=== PATIENT | male | born 1970 | race Caucasian/White ===

== ENCOUNTER 2021-03-03 10:09 | Emergency (ER) | payer BC ==
[2021-03-03] MEDS ORDERED: Sodium Chloride 0.9% 10 ML Syringe FLUSH PRN (10:21)
[2021-03-03] MEDS ORDERED: Ondansetron 4 MG/2 ML SDV IVPUSH ONE (10:22)
[2021-03-03] MEDS ORDERED: HYDROmorphone 1 MG/ML Syringe IVPUSH ONE ×3 (10:23→12:30)
[2021-03-03 11:06] LABS: CHLORIDE,CL 103 mmol/L (98-107); SODIUM,NA 140 mmol/L (136-145)
[2021-03-03 11:08] LABS: ANION GAP 15.7 mmol/L (5-15)
[2021-03-03 11:14] LABS: PTT,PARTIAL THROMBOPLSTIN TIME 26.9 SEC (25.6-32.8)
[2021-03-03] MEDS ORDERED: Iopamidol 612 MG/ML 100 ML Bottle IVPUSH ONE (11:36)
--- NOTE | 2021-03-03 12:42 | CT ---
[id number] CT/CTA Chest . Exam: CTA Chest Clinical Data: CHEST PAIN ELEVATED D-DIMER COMPARISON: NO PREVIOUS SIMILAR EXAM IS AVAILABLE FINDINGS: There is an aberrant right subclavian artery. Pulmonary emboli are seen in the lower lobes bilaterally Pulmonary artery opacification is suboptimal There is a small right effusion Report called at time of dictation An infiltrate is seen at the right lung base IMPRESSION: BILATERAL LOBE PULMONARY EMBOLI Mustapha Barrera MD 03/03/21 [id number] Thank you for allowing us to participate in the care of your patient.
[2021-03-03] MEDS ORDERED: Rivaroxaban 10 MG Tab PO STA ×2 (12:54→13:04)
[2021-03-03] MEDS ORDERED: Take Home: Acetaminophen/HYDROcodone 325-10 MG, 5 Tab Pack PO ONE (12:56)
--- NOTE | 2021-03-03 16:57 | EDM.PDOC ---
ED HPI GENERAL MEDICAL PROBLEM - General Chief Complaint: General Time Seen by Provider: 03/03/21 10:14 Source of Information: Reports: Patient History Limitations: Reports: No Limitations - History of Present Illness INITIAL COMMENTS - FREE TEXT/NARRATIVE: Pt. presents to ER with complaints of R sided lower respirophasic chest pain. Pt. states that this started approx. 3 days ago. Denies any significant shortness of breath, substernal chest pain, or hemoptysis. Denies any fever or chills. Denies any cough or wheezing. Pt. states that he had not recently had any chest trauma. He denies any abdominal discomfort, radiation of pain into the groin, or hematuria. Pt. denies feeling faint or lightheaded. Onset Date: 02/28/21 Location: Reports: Chest, Generalized Quality: Reports: Sharp Right Thoracic Pain Score (Numeric/FACES): 3 - Related Data Allergies Allergy/AdvReac Type Severity Reaction Status Date / Time No Known Allergies Allergy Verified 03/03/21 10:18 Home Meds: Home Meds . [No Known Home Meds] 03/03/21 [History] Past Medical History - Past Health History Medical/Surgical History: Denies Medical/Surgical History Social & Family History - Tobacco Use Tobacco Use Status *Q: Never Tobacco User ED ROS GENERAL - Review of Systems Review Of Systems: See Below Constitutional: Reports: No Symptoms HEENT: Reports: No Symptoms Respiratory: Reports: Pleuritic Chest Pain Cardiovascular: Reports: Chest Pain. Denies: Dyspnea on Exertion, Edema, Lightheadedness, Orthopnea, Palpitations, PND, Syncope Endocrine: Reports: No Symptoms GI/Abdominal: Reports: No Symptoms : Reports: No Symptoms Musculoskeletal: Reports: No Symptoms Skin: Reports: No Symptoms Neurological: Reports: No Symptoms Psychiatric: Reports: No Symptoms Hematologic/Lymphatic: Reports: No Symptoms Immunologic: Reports: No Symptoms ED EXAM, GENERAL - Physical Exam Exam: See Below Exam Limited By: No Limitations General Appearance: Alert, WD/WN, No Apparent Distress Neck: Normal Inspection, Supple, Non-Tender, Full Range of Motion Respiratory/Chest: No Respiratory Distress, Lungs Clear, Normal Breath Sounds, No Accessory Muscle Use, Chest Non-Tender Cardiovascular: Normal Peripheral Pulses, Regular Rate, Rhythm, No Edema, No JVD, No Murmur Peripheral Pulses: 4+: Radial (L) GI/Abdominal: Soft, Non-Tender, No Distention, No Mass (Male) Exam: Deferred Rectal (Males) Exam: Deferred Back Exam: No: CVA Tenderness (L), CVA Tenderness (R) Extremities: Normal Inspection, Normal Range of Motion, Non-Tender, No Pedal Edema, Normal Capillary Refill Neurological: Alert, Oriented, CN II-XII Intact, Normal Cognition, Normal Reflexes, No Motor/Sensory Deficits Psychiatric: Normal Affect, Normal Mood Skin Exam: Warm, Dry, Intact, Normal Color, No Rash #1 Interpretation Rhythm: NSR [place]: Normal P-Wave: Present QRS: Normal ST-T: Normal QT: Normal Course - Vital Signs Last Recorded V/S: Last Vital Signs Temp 36.7 C 03/03/21 10:10 Pulse 89 03/03/21 10:10 Resp 20 03/03/21 10:10 BP 138/85 03/03/21 10:10 Pulse Ox 96 03/03/21 10:10 - Orders/Labs/Meds Orders: Active Orders 24 hr Category Date Time Status Peripheral IV Insertion Adult [OM.PC] Routine Oth 03/03/21 10:21 Ordered Labs: Laboratory Tests 03/03/21 03/03/21 03/03/21 Range/Units 10:38 10:38 10:38 WBC 9.0 (4.0-10.0) x10^3/uL RBC 4.61 (4.5-6.0) x10^6/uL Hgb 13.3 L (14.0-18.0) g/dL Hct 40.4 (40.0-52.0) % MCV 87.6 (78.0-93.0) fL MCH 28.9 (26.0-32.0) pg MCHC 32.9 (32.0-36.0) g/dL RDW Coeff of Mario 13.8 (10.0-15.0) % Plt Count 212 (130-400) x10^3/uL Neut % (Auto) 84.6 H (50.0-80.0) % Lymph % (Auto) 9.4 L (25.0-50.0) % Caroline % (Auto) 5.6 (2.0-11.0) % Eos % (Auto) 0.2 (0.0-4.0) % Baso % (Auto) 0.2 (0.2-1.2) % PT 10.8 (9.9-12.5) SEC INR 1.0 L (2.0-3.5) APTT 26.9 (25.6-32.8) SEC D-Dimer, Quantitative 2.31 H (<=0.58) mg/LFEU Sodium 140 (136-145) mmol/L Potassium 3.7 (3.5-5.1) mmol/L Chloride 103 (98-107) mmol/L Carbon Dioxide 25 (21-32) mmol/L Anion Gap 15.7 H (5-15) mmol/L BUN 15 (7-18) mg/dL Creatinine 1.2 (0.70-1.30) mg/dL Est Cr Clr Drug Dosing TNP Estimated GFR (MDRD) > 60 Glucose 149 H (70-99) mg/dL Calcium 8.6 (8.5-10.1) mg/dL Corrected Calcium 9.2 (8.5-10.1) mg/dL Magnesium 2.1 (1.8-2.4) mg/dL Total Bilirubin 0.9 (0.2-1.0) mg/dL AST < 10 L (15-37) U/L ALT 16 (16-63) U/L Alkaline Phosphatase 86 (46-116) U/L Troponin I High Sens < 4 (<=76) ng/L C-Reactive Protein 14.0 H (<=0.9) mg/dL Total Protein 7.7 (6.4-8.2) g/dL Albumin 3.2 L (3.4-5.0) g/dL Globulin 4.5 Albumin/Globulin Ratio 0.71 Amylase 40 (25-115) U/L Lipase 102 (73-393) U/L Urine Color (YELLOW) Urine Appearance (CLEAR) Urine pH (5.0-8.0) Ur Specific [place] Urine Protein (NEGATIVE) mg/dL Urine Glucose (UA) (NEGATIVE) mg/dL Urine Ketones (NEGATIVE) mg/dL Urine Occult Blood (NEGATIVE) Urine Nitrite (NEGATIVE) Urine Bilirubin (NEGATIVE) Urine Urobilinogen (0.2) EU/dL Ur Leukocyte Esterase (NEGATIVE) Urine RBC (NOT SEEN) /HPF Urine WBC (NOT SEEN) /HPF Ur Squamous Epith Cells (NOT SEEN) /HPF Calcium Oxalate Crystal (NOT SEEN) /HPF Amorphous Sediment Urine Bacteria (NOT SEEN) /HPF Urine Mucus (NOT SEEN) /LPF SARS CoV-2 RNA Rapid JACI (NEGATIVE) 03/03/21 03/03/21 Range/Units 12:15 12:31 WBC (4.0-10.0) x10^3/uL RBC (4.5-6.0) x10^6/uL Hgb (14.0-18.0) g/dL Hct (40.0-52.0) % MCV (78.0-93.0) fL MCH (26.0-32.0) pg MCHC (32.0-36.0) g/dL RDW Coeff of Mario (10.0-15.0) % Plt Count (130-400) x10^3/uL Neut % (Auto) (50.0-80.0) % Lymph % (Auto) (25.0-50.0) % Caroline % (Auto) (2.0-11.0) % Eos % (Auto) (0.0-4.0) % Baso % (Auto) (0.2-1.2) % PT (9.9-12.5) SEC INR (2.0-3.5) APTT (25.6-32.8) SEC D-Dimer, Quantitative (<=0.58) mg/LFEU Sodium (136-145) mmol/L Potassium (3.5-5.1) mmol/L Chloride (98-107) mmol/L Carbon Dioxide (21-32) mmol/L Anion Gap (5-15) mmol/L BUN (7-18) mg/dL Creatinine (0.70-1.30) mg/dL Est Cr Clr Drug Dosing Estimated GFR (MDRD) Glucose (70-99) mg/dL Calcium (8.5-10.1) mg/dL Corrected Calcium (8.5-10.1) mg/dL Magnesium (1.8-2.4) mg/dL Total Bilirubin (0.2-1.0) mg/dL AST (15-37) U/L ALT (16-63) U/L Alkaline Phosphatase (46-116) U/L Troponin I High Sens (<=76) ng/L C-Reactive Protein (<=0.9) mg/dL Total Protein (6.4-8.2) g/dL Albumin (3.4-5.0) g/dL Globulin Albumin/Globulin Ratio Amylase (25-115) U/L Lipase (73-393) U/L Urine Color Monisha H (YELLOW) Urine Appearance Clear (CLEAR) Urine pH 5.5 (5.0-8.0) Ur Specific [place] 1.015 Urine Protein 100 H (NEGATIVE) mg/dL Urine Glucose (UA) Negative (NEGATIVE) mg/dL Urine Ketones Trace H (NEGATIVE) mg/dL Urine Occult Blood Negative (NEGATIVE) Urine Nitrite Negative (NEGATIVE) Urine Bilirubin Small H (NEGATIVE) Urine Urobilinogen 1.0 (0.2) EU/dL Ur Leukocyte Esterase Negative (NEGATIVE) Urine RBC Not seen (NOT SEEN) /HPF Urine WBC Not seen (NOT SEEN) /HPF Ur Squamous Epith Cells Not seen (NOT SEEN) /HPF Calcium Oxalate Crystal Few H (NOT SEEN) /HPF Amorphous Sediment Few Urine Bacteria Rare (NOT SEEN) /HPF Urine Mucus Rare H (NOT SEEN) /LPF SARS CoV-2 RNA Rapid JACI Negative (NEGATIVE) Meds: Medications Discontinued Medications Generic Name Dose Route Start Last Admin Trade Name Freq PRN Reason Stop Dose Admin Hydrocodone Bitart/Acetaminophen 1 packet 03/03/21 12:56 03/03/21 13:10 Take Home: Acetaminophen/Hydrocodone 325-10 Mg, 5 Tab Pack PO 03/03/21 12:57 1 packet ONETIME ONE Administration Hydromorphone HCl 1 mg 03/03/21 10:23 03/03/21 10:43 Hydromorphone 1 Mg/Ml Syringe IVPUSH 03/03/21 10:24 1 mg ONETIME ONE Administration Hydromorphone HCl 1 mg 03/03/21 11:21 03/03/21 11:28 Hydromorphone 1 Mg/Ml Syringe IVPUSH 03/03/21 11:22 1 mg ONETIME ONE Administration Hydromorphone HCl 1 mg 03/03/21 12:30 03/03/21 12:37 Hydromorphone 1 Mg/Ml Syringe IVPUSH 03/03/21 12:31 1 mg ONETIME ONE Administration Iopamidol 100 ml 03/03/21 11:36 03/03/21 12:16 Iopamidol 612 Mg/Ml 100 Ml Bottle IVPUSH 03/03/21 11:37 100 ml ONETIME ONE Administration Ondansetron HCl 4 mg 03/03/21 10:22 03/03/21 10:41 Ondansetron 4 Mg/2 Ml Sdv IVPUSH 03/03/21 10:23 4 mg ONETIME ONE Administration Rivaroxaban 20 mg 03/03/21 12:54 Rivaroxaban 10 Mg Tab PO 03/03/21 12:55 NOW STA Rivaroxaban 15 mg 03/03/21 13:04 03/03/21 13:10 Rivaroxaban 10 Mg Tab PO 03/03/21 13:05 15 mg NOW STA Administration Sodium Chloride 10 ml 03/03/21 10:21 Sodium Chloride 0.9% 10 Ml Syringe FLUSH ASDIRECTED PRN Keep Vein Open - Radiology Interpretation Free Text/Narrative:: CT angiogram of chest obtained, positive for bilateral pulmonary emboli. - Re-Assessments/Exams Free Text/Narrative Re-Assessment/Exam: [facility] call was contacted but they had no bookkeeping assistant available for consult. Pt. was hemodynamically stable, not complaining of dyspnea and was subsequently started on xaralto. He was also started on a course of norco 10/325mg for discomfort. Departure - Departure Time of Disposition: 16:58 Disposition: Home, Self-Care 01 Clinical Impression: Pulmonary embolism - Discharge Information Instructions: Acetaminophen; Hydrocodone tablets or capsules, Rivaroxaban oral tablets, Pulmonary Embolism Referrals: PCP,None [Primary Care Provider] - Forms: ED Department Discharge Additional Instructions: Home to rest. Off work for 7 days. Start Xaralto 15mg once daily for 21 days. Follow-up in clinic. They will increase it to 20mg daily after then 21 day period is up. [place] 1/325mg 1 every 4-6 hours as needed for discomfort. I will call you tomorrow after I talk to pulmonology about this to set up an appointment Return to ER if you have increased shortness of breath or feel like passing out. Sepsis Event Note (ED) - Evaluation Sepsis Screening Result: No Definite Risk - Focused Exam Vital Signs: Vital Signs Temp Pulse Resp BP Pulse Ox 03/03/21 10:10 36.7 C 89 20 138/85 96 - Problem List Review Problem List Initiated/Reviewed/Updated: Yes - My Orders Last 24 Hours: My Active Orders 03/03/21 10:21 Peripheral IV Insertion Adult [OM.PC] Routine - Assessment/Plan Last 24 Hours: My Active Orders 03/03/21 10:21 Peripheral IV Insertion Adult [OM.PC] Routine Plan: Home to rest. Off work for 7 days. Start Xaralto 15mg once daily for 21 days. Follow-up in clinic. They will increase it to 20mg daily after then 21 day period is up. [place] 1/325mg 1 every 4-6 hours as needed for discomfort. I will call you tomorrow after I talk to pulmonology about this to set up an appointment Return to ER if you have increased shortness of breath or feel like passing out.
== END 2021-03-03 13:18 | disposition home or self-care (01) ==
LOC: VM.ED 10:09
DX: I26.99 Other pulmonary embolism without acute cor pulmonale (principal); Z20.822 Contact with and (suspected) exposure to COVID-19
CPT/HCPCS: 71275; 80053; 81001; 82150; 83690; 83735; 84484; 85025; 85379; 85610; 85730; 86140; 87635; 93005; 93010; 96374; 96375; 96376; 99284; A9270; J1170; J2405; Q9967; U0002